=== PATIENT | male | born 1995 | race Caucasian/White ===

== ENCOUNTER 2018-11-03 22:32 | Emergency (ER) | payer BC ==
--- NOTE | 2018-11-04 00:12 | XR ---
EXAM: XR Chest, 2 Views CLINICAL HISTORY: ITS.REASON XR Reason: Pain TECHNIQUE: Frontal and lateral views of the chest. COMPARISON: No relevant prior studies available. FINDINGS: Lungs: Unremarkable. No consolidation. Pleural space: Unremarkable. No pneumothorax. Heart: Unremarkable. No cardiomegaly. Mediastinum: Unremarkable. Bones/joints: No acute fracture. IMPRESSION: No acute findings.
[2018-11-04] MEDS ORDERED: OXYMETAZOLINE 0.05% NASL SPRAY 1 SPRAY BOTTLE NASAL STA (00:56)
[2018-11-04] MEDS ORDERED: SODIUM CHLORIDE 0.9% 1,000 ML IV ONE (00:56)
[2018-11-04] MEDS ORDERED: KETOROLAC 30 MG/ML 1 ML VIAL IVP STA (00:56)
[2018-11-04] MEDS ORDERED: PSEUDOEPHEDRINE 30 MG TAB PO STA (00:58)
--- NOTE | 2018-11-04 01:11 | ED ---
Headache HPI - General Chief Complaint: Headache Stated Complaint: Sinus Pressure, Headache Time Seen by Provider: 11/04/18 00:31 Source: patient, family (Mother) Mode of arrival: ambulatory Limitations: no limitations - History of Present Illness Initial Comments: This patient is 23-year-old man who presents for evaluation of headache and cough. Patient states that he was in his usual state of health until Saturday when he started to have cough and nasal congestion. Over the course of the next day he developed frontal pressure type headache. He was seen at the urgent care clinic and started on medications. It has become severe now. The patient denies change in vision, hearing, ear pain. No neurologic symptoms. MD Complaint: headache Onset/Timin -: days(s) Onset Description: gradual Location: right, left, frontal Severity: severe Quality: other (Pressure) Consistency: constant Improves With: nothing Worsens With: none Context: occurred at rest Associated Symptoms: other (Congestion) Other Symptoms: cough - Related Data Allergies Allergy/AdvReac Type Severity Reaction Status Date / Time No Known Allergies Allergy Verified 11/04/18 00:33 Review of Systems ROS Statement: Those systems with pertinent positive or pertinent negative responses have been documented in the HPI. ROS Other: All systems not noted in ROS Statement are negative. Constitutional: Denies: fever, chills Eyes: Denies: eye pain, eye discharge, vision change ENT: Reports: congestion. Denies: ear pain, throat pain, dental pain, epistaxis Respiratory: Reports: cough. Denies: dyspnea, wheezes Cardiovascular: Denies: chest pain Gastrointestinal: Denies: abdominal pain Musculoskeletal: Denies: back pain Skin: Denies: rash Neurological: Reports: as per HPI, headache. Denies: weakness, numbness, paresthesias, confusion Past Medical History Additional Past Medical History / Comment(s): migraines History of Any Multi-Drug Resistant Organisms: None Reported Past Surgical History: No Surgical Hx Reported Past Psychological History: No Psychological Hx Reported Smoking Status: Never smoker Past Alcohol Use History: Daily Past Drug Use History: None Reported General Exam Limitations: no limitations General appearance: alert, in no apparent distress Head exam: Present: atraumatic, normocephalic, normal inspection, other (There is mild frontal sinus tenderness to percussion) Eye exam: Present: normal appearance, PERRL, EOMI. Absent: scleral icterus, conjunctival injection ENT exam: Present: normal oropharynx, mucous membranes moist, normal external ea r exam Neck exam: Present: normal inspection, full ROM. Absent: tenderness, meningismus Respiratory exam: Present: normal lung sounds bilaterally. Absent: respiratory distress, wheezes, rales, rhonchi, stridor Cardiovascular Exam: Present: regular rate, normal rhythm, normal heart sounds. Absent: systolic murmur, diastolic murmur, rubs, gallop GI/Abdominal exam: Present: soft. Absent: tenderness Back exam: Present: normal inspection. Absent: CVA tenderness (R), CVA tenderness (L) Neurological exam: Present: alert, oriented X3, CN II-XII intact. Absent: motor sensory deficit Skin exam: Present: warm, dry, intact, normal color. Absent: rash Course Vital Signs 11/03/18 23:29 Temperature 100.0 F H Pulse Rate 111 H Respiratory 18 Rate Blood Pressure 119/81 O2 Sat by Pulse 98 Oximetry Medical Decision Making - Lab Data Lab Results 11/03/18 11/03/18 Range/Units 23:37 23:37 Influenza Type A RNA Not Detected (Not Detectd) Influenza Type B (PCR) Not Detected (Not Detectd) Group A Strep Rapid Negative (Negative) Disposition Clinical Impression: Sinusitis Disposition: HOME SELF-CARE Condition: Good Instructions (If sedation given, give patient instructions): Acute Headache (ED) Is patient prescribed a controlled substance at d/c from ED?: No Referrals: None,Stated [Primary Care Provider] - 1-2 days Cash Corbin MD [REFERRING] - 1-2 days
[2018-11-04 03:00] VITALS: BP 126/86; PULSE 90; RESP 19; TEMP 98.2
== END 2018-11-04 02:58 | disposition home or self-care (01) ==
LOC: EC 22:32
DX: J32.1 Chronic frontal sinusitis (principal); Z86.69 Personal history of other diseases of the nervous system and sense organs
CPT/HCPCS: 87081; 87430; 87502; 71046; 99283; 96374; J1885